=== PATIENT | female | born 1975 | race African-American/Black ===

== ENCOUNTER 2016-06-02 15:58 | Emergency (ER) | payer OTHER ==
[2016-06-02 16:07] VITALS: BMI 21.9
--- NOTE | 2016-06-02 16:07 | PDOC ---
Rapid Medical Evaluation Time Seen by Provider: 06/02/16 16:05 Medical Evaluation: 06/02/16 16:05 41 year old female with history only of myomectomy presenting with 5 days of fever (TMax 102) and bilateral ear pain, R>L. Seen in ENT office today and was told to come to ED because exam did not reveal source of fever. T 102.4 -UA, urine -Influenza swab -Sepsis labs/cultures -To Main ED for further evaluation
[2016-06-02 16:38] LABS: BASOPHIL 1.1 % (0-2.0); EOSINOPHIL 0.1 % (0-4.5); MCH 29.8 pg (25.7-33.7); MCHC 33.1 g/dl (32.0-36.0); NEUTROPHILS 61.9 % (42.8-82.8); RDW 14.8 % (11.6-15.6); WHITE BLOOD COUNT 5.1 K/mm3 (4.0-10.0)
[2016-06-02 16:42] LABS: VENOUS BLOOD GAS HCO3 25.2 meq/L (19-25)
[2016-06-02] MEDS ORDERED: ACETAMINOPHEN 325 MG TABLET (FP) ONE (16:42)
[2016-06-02] MEDS ORDERED: ACETAMINOPHEN 325 MG TABLET (FP) PO ONE (16:42)
[2016-06-02 16:45] LABS: VENOUS PH 7.44 (7.32-7.42)
[2016-06-02 16:53] LABS: URINE APPEARANCE SLCLOUDY; URINE BILIRUBIN NEGATIVE (NEGATIVE); URINE BLOOD NEGATIVE (NEGATIVE); URINE COLOR YELLOW; URINE GLUCOSE (UA) NEGATIVE (NEGATIVE); URINE KETONE 1+ (NEGATIVE); URINE LEUK ESTERASE NEGATIVE (NEGATIVE); URINE NITRITE NEGATIVE (NEGATIVE); URINE PROTEIN NEGATIVE (NEGATIVE); URINE UROBILINOGEN 2.0 E.U/dl E.U./dl (0.2-1.0)
[2016-06-02 16:58] LABS: INR 1.22 (0.82-1.09); PROTHROMBIN TIME (PATIENT) 13.5 SEC (9.98-11.88)
[2016-06-02 16:59] LABS: ACTIVATED PTT 29.4 SECONDS (26.9-34.4)
--- NOTE | 2016-06-02 17:37 | PDOC ---
History of Present Illness - General Chief Complaint: Pain Stated Complaint: PCP SENT/PAIN Time Seen by Provider: 06/02/16 16:05 - History of Present Illness Initial Comments: 06/02/16 17:26 The pt is a 41 year old female with a PMH of myomectomy who presents to ED referred from ENT office. She has been complaining of fever and ear pain B/L, right more than left that started 4 days ago. She visited PCP and was prescribed Amoxicillin, she took it for 2 days. Today she went to ENT office for evaluation. According to him her physical examination was normal. Her temp was 104.8. She is also complaining of nausea,loss of appetite, intermittent numbness in her arms and knee pain for 4 days. She denies hearing loss, vision problems, headache, chest pain, SOB, palpitations She denies dysuria, increased frequency, vomiting, diarrhea. Past History - Past Medical History Allergies/Adverse Reactions: Allergies Allergy/AdvReac Type Severity Reaction Status Date / Time No Known Allergies Allergy Verified 06/02/16 16:07 Home Medications: Ambulatory Orders NK [No Known Home Medication] 06/02/16 - Surgical History Abdominal Surgery: (MYOMECTOMY) - Psycho/Social/Smoking Cessation Hx Suicidal Ideation: No Smoking History: Never smoked Information on smoking cessation initiated: No Review of Systems - Review of Systems Comments:: 06/02/16 17:39 REVIEW OF SYSTEMS CONSTITUTIONAL: generalized weakness, malaise, loss of appetite, Absent: fever, chills, diaphoresis, generalized weakness, malaise, loss of appetite, weight change HEENT: Absent: rhinorrhea, nasal congestion, throat pain, throat swelling, difficulty swallowing, mouth swelling, ear pain, eye pain, visual changes CARDIOVASCULAR: Absent: chest pain, syncope, palpitations, irregular heart rate, lightheadedness , peripheral edema RESPIRATORY: Absent: cough, shortness of breath, dyspnea with exertion, orthopnea, wheezing, stridor, hemoptysis GASTROINTESTINAL: Absent: abdominal pain, abdominal distension, nausea, vomiting, diarrhea, constipation, melena, hematochezia GENITOURINARY: Absent: dysuria, frequency, urgency, hesitancy, hematuria, flank pain, genital pain MUSCULOSKELETAL: Absent: myalgia, arthralgia, joint swelling, back pain, neck pain SKIN: Absent: rash, itching, pallor HEMATOLOGIC/IMMUNOLOGIC: Absent: easy bleeding, easy bruising, lymphadenopathy, frequent infections ENDOCRINE: Absent: unexplained weight gain, unexplained weight loss, heat intolerance, cold intolerance NEUROLOGIC: Absent: headache, focal weakness or paresthesias, dizziness, unsteady gait, seizure, mental status changes, bladder or bowel incontinence PSYCHIATRIC: Absent: anxiety, depression, suicidal or homicidal ideation, hallucinations. *Physical Exam - Vital Signs Last Vital Signs Temp Pulse Resp BP Pulse Ox 102.4 F H 95 H 18 118/71 100 06/02/16 16:03 06/02/16 16:03 06/02/16 16:03 06/02/16 16:03 06/02/16 16:03 ED Treatment Course - LABORATORY CBC & Chemistry Diagram: 06/02/16 16:00 06/02/16 16:00 - ADDITIONAL ORDERS Additional order review: Laboratory Results 06/02/16 06/02/16 16:25 16:00 INR 1.22 H PTT (Actin FS) 29.4 VBG pH 7.44 H POC VBG pCO2 37.6 L POC VBG pO2 29.0 Mixed VBG HCO3 25.2 H 06/02/16 16:00 RBC 4.27 MCV 90.0 MCHC 33.1 RDW 14.8 Neutrophils % 61.9 Lymphocytes % 19.9 Monocytes % 17.0 H Eosinophils % 0.1 Basophils % 1.1 - Medications Given in the ED: ED Medications Discontinued Medications Generic Name Dose Route Start Last Admin Trade Name Freq PRN Reason Stop Dose Admin Acetaminophen 650 mg 06/02/16 16:42 06/02/16 16:48 Tylenol - PO 06/02/16 16:43 650 mg NOW ONE Administration Medical Decision Making - Medical Decision Making 06/02/16 18:07 The pt is a 39 year old patient who presents complaining of ear pain, nausea, weakness, high fever. Differential diagnosis include SIRS, TMJ syndrome, mastoiditis, ear infection. We ordered sepsis protocol, blood cultures, urine cultures, IVF, CBC, CMP, UA, test, CXR. We also ordered CT head w/o contrast, sinus CT w/o contrast. *DC/Admit/Observation/Transfer Diagnosis at time of Disposition: Ear pain - Referrals Referrals: Roselia Morgan MD [Primary Care Provider] -
[2016-06-02] MEDS ORDERED: KETOROLAC TROMETHAMINE 30 MG/1 ML VIAL IVPUSH PRN (17:41)
[2016-06-02] MEDS ORDERED: ONDANSETRON 4 MG/2 ML VIAL IVPB ONE (17:41)
[2016-06-02] MEDS ORDERED: morphine CARPU-JECT 2 MG/1 ML DISP.SYRIN IVPUSH ONE (17:41)
[2016-06-02 17:44] LABS: MEAN PLT VOLUME 8.9 fl (7.5-11.1); PLATELET COUNT 133 K/MM3 (134-434)
[2016-06-02 17:45] LABS: PLATELET COMMENT2 NO CLUMPING NOTED; PLATELET COMMENT3 NO CLOTTING DETECTED; PLATELET ESTIMATE SLT DECREASED (NORMAL)
[2016-06-02 17:56] LABS: ALBUMIN 4.3 g/dl (3.4-5.0); BILIRUBIN,TOTAL 1.1 mg/dL (0.2-1.0); CREATININE 1.1 mg/dL (0.55-1.02); TOT PROT 8.7 g/dl (6.4-8.2)
[2016-06-02] MEDS ORDERED: morphine CARPU-JECT 4 MG/1 ML DISP.SYRIN ONE (18:05)
[2016-06-02] MEDS ORDERED: ONDANSETRON 4 MG/2 ML VIAL ONE (18:06)
[2016-06-02] MEDS ORDERED: SODIUM CHLORIDE 1,000 ML IV STA (18:07)
[2016-06-02 21:11] VITALS: BP 122/71; PULSE 88; TEMP 97.9
[2016-06-02] MEDS ORDERED: OXYCODONE/APAP 5/325MG COMBO TABLET PO ONE (22:15)
[2016-06-02] MEDS ORDERED: ONDANSETRON *ODT* 4 MG TABLET SL ONE (22:15)
[2016-06-02] MEDS ORDERED: OXYCODONE/APAP 5/325MG COMBO TABLET ONE (22:58)
[2016-06-02] MEDS ORDERED: ONDANSETRON *ODT* 4 MG TABLET ONE (22:59)
--- NOTE | 2016-06-02 23:04 | PDOC ---
[id number] the patient, The case was reviewed & discussed with the resident, I agree w/resident's findings & plan - HPI HPI: 06/02/16 22:59 Right Ear Pain - Fever - Sent from ENT Exam negative Work up negative Differential - Shingles (early), Trigeminal Neuralgia, or TMJ syndrome. Rx Percocet and Zofran - Medical Decision Making 06/02/16 23:00 DC with referral to Neurology Discharge Disposition - Diagnosis Ear pain - Discharge Dispostion Disposition: HOME Condition at time of disposition: Good - Prescriptions Prescriptions: Oxycodone HCl/Acetaminophen [Percocet 5-325 mg Tablet] 1 - 2 tab PO Q6H #40 tab MDD 6 Ondansetron [Zofran *Odt*] 8 mg SL TID #40 od.tablet - Referrals Referrals: Roselia Morgan MD [Primary Care Provider] - - Patient Instructions Printed Discharge Instructions: DI for Trigeminal Neuralgia, DI for Shingles, DI for Temporomandibular Disorder Additional Instructions: Nori - Sorry this is so painful.... Finish the amoxicillin. See the neurologist Dr. Hoyt first and if that is not your answer, get a referral to a oral maxilofacial for the possibility of TMJ. Your meds went down to the [facility] on [address] so you can pick them up on the way home. Christian- / Romeo Sanchez - Post Discharge Activity
== END 2016-06-02 23:10 | disposition home or self-care (01) ==
LOC: JER 15:58
PROC: 3E0337Z Introduction of Electrolytic and Water Balance Substance into Peripheral Vein, Percutaneous Approach (ICD-10-PCS; principal; 2016-06-02)
PROC: 3E033NZ Introduction of Analgesics, Hypnotics, Sedatives into Peripheral Vein, Percutaneous Approach (ICD-10-PCS; 2016-06-02)
PROC: 3E033GC Introduction of Other Therapeutic Substance into Peripheral Vein, Percutaneous Approach (ICD-10-PCS; 2016-06-02)
DX: H92.01 Otalgia, right ear (principal)
CPT/HCPCS: 36415; 70450-TC; 70486-TC; 71010-TC; 80053; 81003; 82803; 83605; 84703; 85025; 85610; 85651; 85730; 86038; 87040; 87086; 87804; 99283-25